=== PATIENT | male | born 1955 | race Caucasian/White ===

== ENCOUNTER 2021-11-11 05:59 | Emergency (ER) | payer MEDICARE ==
[2021-11-11] MEDS ORDERED: Tranexamic Acid 1,000 MG/10 ML VIAL ONE (06:15)
== END 2021-11-11 06:50 | disposition home or self-care (01) ==
LOC: CSHERS 05:59
DX: R22.2 Localized swelling, mass and lump, trunk (principal); C80.1 Malignant (primary) neoplasm, unspecified; F17.210 Nicotine dependence, cigarettes, uncomplicated; M10.9 Gout, unspecified; I10 Essential (primary) hypertension
CPT/HCPCS: 96374